=== PATIENT | male | born 1940 | race Caucasian/White ===

== ENCOUNTER → 2017-06-27 | Outpatient (CLI) | payer MEDICARE ==
[~2017-06-27] MED LIST: Aspir 8181 MG PO; FINASTERIDE1 MG PO; FISH1000 PO; SIMV5 PO; TERA5 PO
== END ==
LOC: LAB SHORT 15:22
DX: N39.0 Urinary tract infection, site not specified (principal)
CPT/HCPCS: 87077; 87086; 87186

== ENCOUNTER 2023-11-24 12:13 | Emergency (ER) | payer OTHER, MEDICARE ==
[~2023-11-24] VITALS: Ht 185.4 cm; Wt 83.5 kg
[2023-11-24] MEDS ORDERED: ZOCOR20 MG PO (12:40)
[2023-11-24] MEDS ORDERED: AMLO10 PO (12:40)
[2023-11-24] MEDS ORDERED: MECL12.5 PO (12:41)
[2023-11-24 14:30] VITALS: BP 140/89
[2023-11-24] MEDS ORDERED: Ketorolac Tromethamine 15mg Vial IV ONE (15:25)
== END 2023-11-24 15:47 | disposition short-term general hospital (02) ==
LOC: ER 12:13
DX: S22.41XA Multiple fractures of ribs, right side, initial encounter for closed fracture (principal); S12.000A Unspecified displaced fracture of first cervical vertebra, initial encounter for closed fracture; S12.600A Unspecified displaced fracture of seventh cervical vertebra, initial encounter for closed fracture; S22.019A Unspecified fracture of first thoracic vertebra, initial encounter for closed fracture; S27.321A Contusion of lung, unilateral, initial encounter; V89.2XXA Person injured in unspecified motor-vehicle accident, traffic, initial encounter; Z87.891 Personal history of nicotine dependence
CPT/HCPCS: 96374; 99285-25; J1885

== ENCOUNTER 2024-01-03 11:21 | Inpatient (IN) | payer OTHER ==
[~2024-01-03] VITALS: Ht 182.9 cm; Wt 79.5 kg
[~2024-01-03 11:21] MED LIST changes: +AMLO10 PO; +MECL12.5 PO; +ZOCOR20 MG PO
[2024-01-03 11:39] LABS: BASOPHILS ABSOLUTE AUTO 0.08 K/mm3 (0.00-0.23); BASOPHILS PERCENT AUTO 0 % (0-2); EOSINOPHILS ABSOLUTE AUTO 0.02 K/mm3 (0.00-0.68); EOSINOPHILS PERCENT AUTO 0 % (0-6); Hematocrit 32.5 % (37.0-53.0); Hemoglobin 10.7 g/dL (13.5-17.5); IMMATURE GRAN ABSOLUTE AUTO 0.18 K/mm3 (0.00-0.10); IMMATURE GRAN PERCENT AUTO 1 % (0-1); LYMPHOCYTES ABSOLUTE AUTO 0.92 K/mm3 (0.84-5.20); LYMPHOCYTES PERCENT AUTO 5 % (21-46); MONOCYTES ABSOLUTE AUTO 1.36 K/mm3 (0.16-1.47); MONOCYTES PERCENT AUTO 7 % (4-13); Mean Corpuscular HGB 31.3 pg (26.0-34.0); Mean Corpuscular HGB Conc 32.9 g/dL (31.5-36.5); Mean Corpuscular Volume 95 fL (80-100); Mean Platelet Volume 9.3 fL (9.1-12.4); NEUTROPHILS PERCENT AUTO 88 % (41-73); Platelet Count 231 K/mm3 (150-400); RDW Coefficient Variation 14.1 % (11.7-14.2); RDW Standard Deviation 49.3 fL (35.1-46.3); Red Blood Cell Count 3.42 M/mm3 (4.30-5.90); White Blood Cell Count 20.66 K/mm3 (4.00-11.30)
[2024-01-03] MEDS ORDERED: NS 1,000 ML IV SCH (11:45)
[2024-01-03 11:59] LABS: Albumin, Blood 2.9 g/dL (3.4-5.0); Albumin/Globulin Ratio 0.7 (0.8-1.8); Bilirubin, Total 0.5 mg/dL (0.1-1.0); Bun/Creatinine Ratio 30.2 (12.0-20.0); Calcium, Blood 8.6 mg/dL (8.5-10.1); Creatinine, Blood 1.26 mg/dL (0.60-1.20); Globulin, Blood 3.9 g/dL (2.2-4.0); Potassium, Blood 4.2 mmol/L (3.5-5.5); Total Protein, Blood 6.8 g/dL (6.4-8.2)
[2024-01-03 12:58] LABS: Source, Urine Foley catheter
[2024-01-03 13:04] LABS: Bilirubin, Urine Neg (Neg); Blood, Urine 1+ (Neg); Color, Urine Yellow (P-Yellow); Glucose Qualitative, Urine Neg (Neg); Ketones, Urine Neg (Neg); Leukocyte Esterase, Urine 2+ (Neg); Nitrite, Urine Neg (Neg); Protein, Urine 1+ (Neg); Specific Gravity, Urine 1.015 (1.003-1.022); Urobilinogen, Urine NORM (Normal)
[2024-01-03 13:16] LABS: Appearance, Urine Hazy (Clear)
[2024-01-03 13:17] LABS: Bacteria Many /hpf; Mucus Light (0-Heavy); Squamous Epithelial Cells Rare /hpf (Few); White Blood Cells, Urine 25-50 /hpf (0-5)
[2024-01-03 13:18] LABS: Transitional Epithelial Cells Rare /hpf (0-Rare)
[2024-01-03] MEDS ORDERED: Ondansetron HCl 2 MG / ML 2ML Vial IV PRN (13:35)
[2024-01-03] MEDS ORDERED: Acetaminophen 325 MG TABLET PO PRN (13:40)
[2024-01-03] MEDS ORDERED: Lactated Ringer's 1,000 ML IV SCH (13:40)
[2024-01-03] MEDS ORDERED: Meclizine HCl 25 MG Tab PO PRN (13:40)
[2024-01-03] MEDS ORDERED: CefTRIAXone Sodium 1,000 MG in NS 100 ML IV SCH (13:41)
[2024-01-03 14:09] LABS: Influenza A, PCR NEGATIVE (NEGATIVE); Influenza B, PCR NEGATIVE (NEGATIVE); Resp Syncytial Virus, PCR NEGATIVE (NEGATIVE); SARS-Cov-2 (COVID-19) PCR, MMC NEGATIVE (NEGATIVE)
--- NOTE | 2024-01-03 19:26 | NUR ---
DAY SHIFT SUMMARY: PATIENT ADMIT FROM ED THIS SHIFT. PT A&O X4; CALM AND COOPERATIVE WITH CARE. MEDICATED FOR FEVER PER EMAR; NO C/O PAIN SINCE ARRIVAL ON MEDICAL FLOOR. DOOLEY IN PLACE FOR RETENTION. LR @ 100 X 2L. IV ABX & FLUIDS CONTINUING. REPORT GIVEN TO ONCOMING RN.
[2024-01-03 19:35] VITALS: BP 113/66
[2024-01-03] MEDS ORDERED: Lactobacil 2-S.Thermo-Bifido 1 1 Cap PO SCH (21:00)
[2024-01-04 02:30] VITALS: BP 125/76
--- NOTE | 2024-01-04 04:09 | NUR ---
SHIFT SUMMARY PATIENT FEBRILE 99.7 START OF SHIFT TO 102.4. TYLENOL 650 MG GIVEN PER EMAR. ROOM TEMP LOWERED, BLANKETS PULLED BACK, AND FAN IN PLACE. REASSESS 101.7. NEW PIV PLACED. LR INFUSING @ 100mL/HR BAG 2 OF 2. DOOLEY PATENT AND DRAINING YELLOW URINE. DENIES CHEST PAIN, SOB, AND N/V. CALL LIGHT IN REACH. BED IN LOWEST POSITION. WILL CONTINUE TO MONITOR UNTIL DAY SHIFT NURSE ASSUMES CARE.
[2024-01-04 05:34] LABS: BASOPHILS ABSOLUTE AUTO 0.07 K/mm3 (0.00-0.23); BASOPHILS PERCENT AUTO 1 % (0-2); EOSINOPHILS ABSOLUTE AUTO 0.05 K/mm3 (0.00-0.68); EOSINOPHILS PERCENT AUTO 0 % (0-6); Hemoglobin 9.8 g/dL (13.5-17.5); IMMATURE GRAN ABSOLUTE AUTO 0.03 K/mm3 (0.00-0.10); IMMATURE GRAN PERCENT AUTO 0 % (0-1); LYMPHOCYTES ABSOLUTE AUTO 1.17 K/mm3 (0.84-5.20); LYMPHOCYTES PERCENT AUTO 9 % (21-46); MONOCYTES ABSOLUTE AUTO 1.07 K/mm3 (0.16-1.47); MONOCYTES PERCENT AUTO 9 % (4-13); Mean Corpuscular HGB 30.5 pg (26.0-34.0); Mean Corpuscular HGB Conc 32.7 g/dL (31.5-36.5); Mean Corpuscular Volume 94 fL (80-100); Mean Platelet Volume 9.6 fL (9.1-12.4); NEUTROPHILS ABSOLUTE AUTO 10.04 K/mm3 (1.96-9.15); NEUTROPHILS PERCENT AUTO 81 % (41-73); Platelet Count 217 K/mm3 (150-400); RDW Coefficient Variation 14.1 % (11.7-14.2); RDW Standard Deviation 47.9 fL (35.1-46.3); Red Blood Cell Count 3.21 M/mm3 (4.30-5.90); White Blood Cell Count 12.43 K/mm3 (4.00-11.30)
--- NOTE | 2024-01-04 05:51 | NUR ---
TEMP 98.1 ON RECHECK. PATIENT RESTING. WCTM.
[2024-01-04 06:01] LABS: Bun/Creatinine Ratio 24.5 (12.0-20.0); Calcium, Blood 8.1 mg/dL (8.5-10.1); Creatinine, Blood 1.06 mg/dL (0.60-1.20); Potassium, Blood 3.9 mmol/L (3.5-5.5)
[2024-01-04 07:20] VITALS: BP 111/76
[2024-01-04] MEDS ORDERED: AmLODIPine Besylate 5 MG Tab PO SCH (09:00)
[2024-01-04] MEDS ORDERED: Atorvastatin 10 MG Tab PO SCH (09:00)
[2024-01-04] MEDS ORDERED: Enoxaparin 40 MG/0.4 ML SYR SC SCH (09:00)
[2024-01-04] MEDS ORDERED: Calcium Carbonate 500 MG Tab Chew PO PRN (11:45)
--- NOTE | 2024-01-04 15:16 | NUR ---
SHIFT SUMMARY PT RESTING QUIETLY AT START OF SHIFT. WOKE EASILY FOR CARE. ASSISTED UP TO BTHRM FOR BM USING FWW AND 1P ASSIST. PT WEAK AND UNSTEADY WHEN FIRST GETTING UP BUT BECOMING A LITTLE MORE STABLE WITH MOVEMENT. PT CALLING APPROP. EACH TIME NEEDING TO GET UP. PT REQUESTING TO USE HIS CANE 2ND TIME UP TO BTHRM, THOUGH NOT STABLE GETTING UP WITH CANE USING FWW. PT ADMITTED FOR UTI R/T SELF CATH AT HOME. IV ABX GIVEN PER EMAR. IVF'S NOW COMPLETE. PT REQUESTING TUMS FOR "HEARTBURN" EARLIER. DR LOPEZ NOTIFIED; NEW ORDERS PLACED AND OBTAINED PER EMAR. VISITORS TO THIS AFTERNOON. DENIED FURTHER NEEDS AT THIS TIME. CALL LT IN REACH.
[2024-01-04 15:30] VITALS: BP 110/70
[2024-01-04 19:18] VITALS: BP 126/73
[2024-01-05 02:53] VITALS: BP 115/75
--- NOTE | 2024-01-05 04:18 | NUR ---
SHIFT SUMMARY PATIENT HAD NO ACUTE CHANGES. LOW GRADE TEMP AT START OF SHIFT 99.9 AND RESOLVED 98.7. AXOX 4 AND INDEPENDENT IN ROOM W/FWW TO BR. PIV INTACT. DENIES CHEST PAIN, SOB, AND N/V. VSS/AFEBRILE. SLEPT MOST OF THE SHIFT. COOPERATIVE WITH CARE. CALL LIGHT IN REACH. BED IN LOWEST POSITION. WILL CONTINUE TO MONITOR UNTIL DAY SHIFT NURSE ASSUMES CARE.
[2024-01-05 05:40] LABS: BASOPHILS ABSOLUTE AUTO 0.12 K/mm3 (0.00-0.23); BASOPHILS PERCENT AUTO 1 % (0-2); EOSINOPHILS ABSOLUTE AUTO 0.19 K/mm3 (0.00-0.68); EOSINOPHILS PERCENT AUTO 2 % (0-6); Hematocrit 32.5 % (37.0-53.0); Hemoglobin 11.3 g/dL (13.5-17.5); IMMATURE GRAN ABSOLUTE AUTO 0.08 K/mm3 (0.00-0.10); IMMATURE GRAN PERCENT AUTO 1 % (0-1); LYMPHOCYTES ABSOLUTE AUTO 1.34 K/mm3 (0.84-5.20); LYMPHOCYTES PERCENT AUTO 13 % (21-46); MONOCYTES ABSOLUTE AUTO 1.23 K/mm3 (0.16-1.47); MONOCYTES PERCENT AUTO 12 % (4-13); Mean Corpuscular HGB 31.1 pg (26.0-34.0); Mean Corpuscular HGB Conc 34.8 g/dL (31.5-36.5); Mean Corpuscular Volume 90 fL (80-100); Mean Platelet Volume 9.8 fL (9.1-12.4); NEUTROPHILS ABSOLUTE AUTO 7.67 K/mm3 (1.96-9.15); NEUTROPHILS PERCENT AUTO 72 % (41-73); Platelet Count 225 K/mm3 (150-400); RDW Coefficient Variation 13.6 % (11.7-14.2); RDW Standard Deviation 44.7 fL (35.1-46.3); Red Blood Cell Count 3.63 M/mm3 (4.30-5.90); White Blood Cell Count 10.63 K/mm3 (4.00-11.30)
[2024-01-05 06:01] LABS: Bun/Creatinine Ratio 17.9 (12.0-20.0); Calcium, Blood 8.6 mg/dL (8.5-10.1); Creatinine, Blood 0.95 mg/dL (0.60-1.20)
[2024-01-05 07:29] VITALS: BP 121/79
[2024-01-05] MEDS ORDERED: Ciprofloxacin 400MG/D5 200ML 200 ML IV SCH (13:00)
[2024-01-05 14:55] VITALS: BP 114/71
--- NOTE | 2024-01-05 18:34 | NUR ---
PT AOX4 AND COOPERATIVE OF CARE. PT DENIED PAIN JUST REPORTED FEELING WEAK. NO DISTRESS NOTED AND CALL LIGHT WITHIN REACH WILL CONTINUE TO MONITOR.
[2024-01-05 21:10] VITALS: BP 107/70
[2024-01-05] MEDS ORDERED: NS 250 ML IV PRN (21:30)
[2024-01-06 03:25] VITALS: BP 113/73
--- NOTE | 2024-01-06 06:23 | NUR ---
GASOLINE TESTER SUMMARY PT A/OX4. ABLE TO MAKE NEEDS KNOWN. PT PLEASANT AND COOPERATIVE. NO ACUTE CHANGES. PT EXPRESSES EAGERNESS TO DISCHARGE HOME. PT CALLS APPROPRIATELY. CALL LIGHT ACCESSIBLE.
[2024-01-06 08:00] VITALS: BP 114/71
[2024-01-06] MEDS ORDERED: CIPR500 PO (13:31)
[2024-01-06] MEDS ORDERED: VISBIOME 112.51 EACH PO (13:33)
--- NOTE | 2024-01-06 14:46 | NUR ---
DISCHARGE NOTE PATIENT A/OX4, ABLE TO MAKE NEEDS KNOWN. DOOLEY CATHTER IN PLACE DRAINING YELLOW CLEAR URINE, NO ISSUES NOTED. PATIENT PROVIDED EDUCATION RELATED TO DOOLEY CATH CARE AND EMPTYING BAG. PATIENT WITH NO QUESTIONS, FAMILY INFORMED WELL. PATIENT RECEPTIVE TO EDUCATION. PRIOR TO DISCHARGE PATIENT WAS SWITCHED TO A LEG BAG AND GIVEN SUPPLIES AND EDUCATION TO CHANGE TO LARGER BAG NIGHTLY. PATIENT WITH CONCERNS OBTAINING [facility] AND STATED HE HAS HAD TROUBLE GETTING MEDS THE SAME DAY IN THE PAST. INFORMED PATIENT THAT IT IS ESSENTIAL HE TAKES HIS ANTIBIOTICS TONIGHT AND IF HE HAS DIFFICULTY RECIEVING MEDICATIONS FROM [facility] I CAN [facility]X THEM TO [id number]. PATIENT AGREEABLE AND STATES HE WILL CALL WITH ANY PROBLEMS. PATIENT ASSISTED TO FAMILY VEHICLE VIA WHEELCHAIR, NO OTHER CONCERNS NOTED AT TIME OF DISCHARGE.
--- NOTE | 2024-01-06 15:17 | NUR ---
FAMILY RETURNED TO FACILITY TO STATE THAT [facility] IS CLOSE. PRESCRIPTIONS WERE FAXED TO [facility], PER PATIENT'S REQUEST.
== END 2024-01-06 15:12 | disposition home or self-care (01) | DRG 698 ==
LOC: ER 11:21 → MEDS 13:34 → ER 14:58 → MEDS 15:25
PROVIDERS: Emergency Medicine; ADMIT Family Medicine
PROC: 0T9B70Z Drainage of Bladder with Drainage Device, Via Natural or Artificial Opening (ICD-10-PCS; principal; 2024-01-03)
PROC: 3E03329 Introduction of Other Anti-infective into Peripheral Vein, Percutaneous Approach (ICD-10-PCS; 2024-01-03)
DX: T83.518A Infection and inflammatory reaction due to other urinary catheter, initial encounter (principal); A41.52 Sepsis due to Pseudomonas; N17.9 Acute kidney failure, unspecified; N39.0 Urinary tract infection, site not specified; D64.9 Anemia, unspecified; N28.9 Disorder of kidney and ureter, unspecified; N40.0 Benign prostatic hyperplasia without lower urinary tract symptoms; I10 Essential (primary) hypertension; Z87.891 Personal history of nicotine dependence; Z88.8 Allergy status to other drugs, medicaments and biological substances; Z90.49 Acquired absence of other specified parts of digestive tract; Z98.890 Other specified postprocedural states; Z79.899 Other long term (current) drug therapy; Y84.6 Urinary catheterization as the cause of abnormal reaction of the patient, or of later complication, without mention of misadventure at the time of the procedure
CPT/HCPCS: 0241U; 36415; 51702; 76770; 80048; 80053; 81001; 83605; 84145; 85025; 87040; 87077; 87086; 87186; 96360; 99285-25; A9270; J0696; J0744; J1650; J7030; J7050; J7120